=== PATIENT | male | born 1955 | race Caucasian/White ===

== ENCOUNTER 2024-07-13 12:21 | Emergency (ER) | payer OTHER, MEDICARE, SELFPAY ==
[2024-07-13] VITALS (10 sets, daily range): BP systolic 124–168; BP diastolic 70–100; PULSE 90–124; RESP 16–33; TEMP 38.6; O2SAT 91–96; BMI 28.1
--- NOTE | 2024-07-13 12:40 | XR_ITS ---
WS: [id number] Exam: XR chest 1V portable [id number] Date/Time of Exam: 07/13/2024 12:55 PM Reason For Exam: Possible Sepsis No priors. The lungs are clear and fully inflated. Normal cardiomediastinal silhouette and regional bony elements. Scattered calcified granulomas. XR/XR chest 1V portable [id number] IMPRESSION: 1. Negative chest.
--- NOTE | 2024-07-13 12:45 | ECG_ITS ---
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 Measurements Intervals [place] Rate: 121 P: 0 WV: 0 QRS: 1 QRSD: 81 T: 154 QT: 270 QTc: 383 Interpretive Statements ATRIAL FIBRILLATION WITH RAPID VENTRICULAR RESPONSE MINIMAL VOLTAGE CRITERIA FOR LVH, CONSIDER NORMAL VARIANT [MEETS CRITERIA IN ONE OF: R(aVL), S(V1), R(V5), R(V5/V6)+S(V1)] ST DEVIATION AND MODERATE T-WAVE ABNORMALITY, CONSIDER ANTEROLATERAL ISCHEMIA [-0.1+ mV T-WAVE IN V3-V6] No previous ECG available for comparison Electronically Signed On 07-15-2024 13:28:31 CDT by Leiws Queen M.D. [email or web address]
--- NOTE | 2024-07-13 12:54 | ED_ITS ---
HPI - Weakness 2 General: Chief complaint: Weakness Stated complaint: multiple falls Time Seen by Provider: 07/13/24 12:33 Source: patient and family Mode of arrival: ambulatory Limitations: altered mental status History of Present Illness: pt is AAOx3 but appears to not be at baseline per family. little confused. multiple falls, near syncope and syncope as well as loss of balance by description. over the past 1 wk. pt wanted to see the doc today and called himself and went to clinic and was sent here from clinic for further eval. 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 L side is dominant for him. Of note all of patient's care has previously been at [facility]. Review of Systems 2 General: Reports: 10 or more systems reviewed and unremarkable except in HPI and below Physical Exam 2 Const: COMMON NORMALS: average body habitus, patient oriented x3, alert and well nourished GENERAL APPEARANCE: well kempt and well developed HENMT: COMMON NORMALS: normocephalic, atraumatic, external ears normal and moist oral mucous membranes HEAD & SCALP: normocephalic and atraumatic E XTERNAL EAR: Yes external ears normal Eye: COMMON NORMALS: Equal, round and reactive pupils present, EOMs intact bilaterally and conjunctivae normal CONJUNCTIVA: Yes conjunctivae normal P UPIL: Yes Equal, round and reactive pupils present Neck/C-Spine: COMMON NORMALS: full ROM, no lymphadenopathy and supple Chest: CHEST: Yes Symmetrical chest wall rise and No Surgical scars present (Chest) Resp: COMMON NORMALS: normal respiratory effort, No retractions, No use of accessory muscles and clear to auscultation bilaterally AUSCULTATION: clear to auscultation bilaterally Cardio: COMMON NORMALS: S1 normal heart sound present, S2 normal heart sound present, No gallops present (Cardio), No clicks present (Cardio), No murmurs present (Cardio) and No rub (Cardio) HEART SOUNDS: S1 normal heart sound present, S2 normal heart sound present and no murmurs PERIPHERAL PULSES: o ther (Radial pulses 2+ and symmetric) GI: COMMON NORMALS: Soft to palpation, non-tender and no masses INSPECTION: No abdominal distension PALPATION: Yes Soft to palpation, No Guarding due to palpation present (GI) and No Rebound tenderness present : COMMON NORMALS: Yes no CVA tenderness BLADDER/KIDNEY EXAM: Yes no CVA tenderness PENIS: normal penis MEATUS: meatus normal SCROTUM: Yes testes descended bilaterally TESTES: Yes testicular lie normal Back/Pelvis: COMMON NORMALS: no CVA tenderness Extremity: COMMON NORMALS: normal to inspection, full ROM, capillary refill normal and no clubbing, cyanosis or edema Neuro: COMMON NORMALS: patient oriented x3 SENSORIUM/ORIENTATION: Yes alert Psych: APPEARANCE: Yes well kempt Skin: COMMON NORMALS: no wounds, turgor normal and no jaundice SKIN IMAGES (MALE): 1. 12 x 6 cm indurated erythematous area with multiple tunneling areas of rot GENERAL SKIN EXAM: turgor normal Course 2 Reevaluation(s): Reevaluation #1: Patient reassessed, heart rate somewhat improving. Temp still elevated. Patient will require transfer as we have no urology here and patient has Gilbert's gangrene. Transfer process has been initiated. Time: 15:02 Vital Signs: Vital signs: Vital Signs Temperature 101.4 F H 07/13/24 12:24 Pulse Rate 120 H 07/13/24 12:24 Respiratory Rate 20 H 07/13/24 12:24 Blood Pressure 146/100 07/13/24 12:24 Pulse Oximetry 94 07/13/24 12:24 Oxygen Delivery Me thod Room Air 07/13/24 12:24 MDM - Weakness Medical Decision Making Patient with fever and sepsis, concern for bacteremia initially had unknown source of infection, more thorough physical exam revealed a severe wound to the buttocks with gangrene and tunneling. No obvious discharge. Very foul smell in room. Patient is also unable to urinate, Saucedo placed. Vitals have thankfully improved with fluids. Currently heart rate of 90 as are reviewing the monitor. Was 120s A-fib RVR when he came in. Have only treated the heart rate with resuscitation for the illness with fluids and antibiotics. No antiarrhythmics or rate control medications. Patient's blood pressure has remained in good standing and patient was found to have Gilbert's gangrene on CT. [facility] Medical Records I reviewed the patient's medical records. Lab Data I reviewed the patient's lab results. 07/13/24 13:00 07/13/24 13:00 Radiology Impressions Chest X-Ray 07/13/24 12:40 IMPRESSION: 1. Negative chest. Laboratory Results WBC 11.74 10^3/uL (3.29-11.43) H 07/13/24 13:00 RBC 4.08 10^6/uL (3.85-5.65) 07/13/24 13:00 Hgb 13.70 g/dL (11.27-16.99) 07/13/24 13:00 Hct 38.5 % (37-53) 07/13/24 13:00 MCV 94.4 fl (82-101) 07/13/24 13:00 MCH 33.6 pg (27-33) H 07/13/24 13:00 MCHC 35.6 g/dL (30-55) 07/13/24 13:00 RDW 13.9 % (12.1-15.1) 07/13/24 13:00 Plt Count 159 10^3/cmm (157-399) 07/13/24 13:00 MPV 9.9 fL (7.4-10.4) 07/13/24 13:00 Neut % (Auto) 91.4 % 07/13/24 13:00 Lymph % (Auto) 3.5 % 07/13/24 13:00 [place] % (Auto) 2.3 % 07/13/24 13:00 Eos % (Auto) 0.2 % 07/13/24 13:00 Baso % (Auto) 0.4 % 07/13/24 13:00 Neut # (Auto) 10.73 10^3/uL (1.8-7.7) H 07/13/24 13:00 Lymph # (Auto) 0.4 10^3/uL (0.8-4.8) L 07/13/24 13:00 [place] # (Auto) 0.3 10^3/uL (0.2-0.9) 07/13/24 13:00 Eos # (Auto) 0.0 10^3/uL (0.0-0.8) 07/13/24 13:00 Baso # (Auto) 0.1 10^3/uL (0.0-0.1) 07/13/24 13:00 Nucleated RBC % (auto) 0 % 07/13/24 13:00 Nucleated RBCs # 0.0 /100WBC 07/13/24 13:00 PT 14.20 SECONDS (12.1-14.9) 07/13/24 13:00 INR 1.03 (0.8-1.2) 07/13/24 13:00 APTT 27.1 SECONDS (23.9-36.7) 07/13/24 13:00 Sodium 131 mmol/L (136-145) L 07/13/24 13:00 Potassium 3.3 mmol/L (3.5-5.1) L 07/13/24 13:00 Chloride 96 mmol/L (98-107) L 07/13/24 13:00 Carbon Dioxide 21 mmol/L (22-29) L 07/13/24 13:00 Anion Gap 17.3 (5-19) 07/13/24 13:00 BUN 21 mg/dL (8-23) 07/13/24 13:00 Creatinine 0.9 mg/dL (0.7-1.2) 07/13/24 13:00 GFR Calculation 84.2 mL/min (90-130) L 07/13/24 13:00 Glucose 181 mg/dL (65-115) H 07/13/24 13:00 POC Glucose 205 mg/dL (70-110) H 07/13/24 13:38 Calculated Osmolality 280 mOsm/kg (285-295) L 07/13/24 13:00 Lactic Acid 1.9 mmol/L (0.5-2.2) 07/13/24 13:00 Calcium 8.9 mg/dL (8.5-10.5) 07/13/24 13:00 Magnesium 2.0 mg/dL (1.7-2.3) 07/13/24 13:00 Total Bilirubin 1.6 mg/dL (0.15-1.2) H 07/13/24 13:00 AST 12 U/L (0-40) 07/13/24 13:00 ALT 13 U/L (0-41) 07/13/24 13:00 Alkaline Phosphatase 108 U/L (40-130) 07/13/24 13:00 Total Protein 7.1 g/dL (6.6-8.7) 07/13/24 13:00 Albumin 3.2 g/dL (3.5-5.2) L 07/13/24 13:00 Globulin 3.9 g/dL (1.3-4.6) 07/13/24 13:00 Procalcitonin 1.50 ng/mL (0-0.5) H 07/13/24 13:00 Urine Color Yellow (Yellow) 07/13/24 13:07 Urine Appearance Clear (CLEAR) 07/13/24 13:07 Urine pH 6 (5-7) 07/13/24 13:07 Ur Specific Reading 1.010 (1.005-1.030) 07/13/24 13:07 Urine Protein 1+ (Negative) H 07/13/24 13:07 Urine Glucose (UA) Norm (Normal) 07/13/24 13:07 Urine Ketones Negative (Negative) 07/13/24 13:07 Urine Blood 2+ (Negative) H 07/13/24 13:07 Urine Nitrate Negative (Negative) 07/13/24 13:07 Urine Bilirubin 1+ (Negative) H 07/13/24 13:07 Urine Urobilinogen 4+ mg/dL (Negative) H 07/13/24 13:07 Ur Leukocyte Esterase Trace (Negative) H 07/13/24 13:07 Urine RBC 3-5 /hpf (0-2) 07/13/24 13:07 Urine WBC 0-5 /hpf (0-5) 07/13/24 13:07 Ur Squamous Epith Cells 0-5 /hpf (0-5) 07/13/24 13:07 Amorphous Sediment Not Reportable 07/13/24 13:07 Urine Bacteria None seen /hpf (NONE) 07/13/24 13:07 Hyaline Casts 1.65 /lpf 07/13/24 13:07 All radiology interpretation(s) finalized by discharge ED provider radiology interpretation(s): Chest x-ray unremarkable, significant subcu emphysema in the pelvis EKG Data EKG 1: I personally reviewed and interpreted this EKG as follows: EKG interpretation date: 07/13/24 EKG interpretation time: 12:49 Prior EKG tracings: not available for review Interpretation: normal axis. a fib rvr, no ST elevations or depressions. Critical Care Time 2 Critical Care Time: Critical Care Time: Yes Total Critical Care Time: 39 Attestation: This case had a high probability of a clinically significant, sudden, or life threatening deterioration of this patient's condition which required my full and direct attention, intervention and personal management. 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
--- NOTE | 2024-07-13 13:10 | CT_ITS ---
WS: [id number] CT ABDOMEN PELVIS TECHNIQUE: Contrast-enhanced CT of the abdomen and pelvis with coronal and sagittal reformatted images. CLINICAL INFORMATION: Fever, sepsis, L buttocks with large wound with tunneling COMPARISON: None. DLP: 1658.[address] scans at [facility] use at least one of these dose optimization techniques: automated exposure control; mA and/or kV adjustment per patient size (includes targeted exams where dose is matched to clinical indication); or iterative reconstruction. FINDINGS: Diffuse patchy areas of subcutaneous air within the perineum extending into the scrotal soft tissues. This extends into the LEFT greater than RIGHT perineum and into the LEFT gluteal soft tissues. No evidence of drainable abscess or fluid collection. Findings suspicious for Gilbert's gangrene. Fatty liver. Hepatomegaly. Small esophageal renal hernia. Adrenal glands are normal. No hydronephrosis in either kidney. Small renal cyst. Lung bases are well aerated. Small splenules. Normal caliber abdominal aorta. Dense aortic calcification. Normal sigmoid colon. Saucedo catheter. CT/CT abdomen pelvis w con* [id number] IMPRESSION: 1. Findings suspicious for Gilbert's gangrene described above with diffuse younger bcutaneous gas in the perineum extending to the scrotal soft tissues and LEFT b uttocks 2. No drainable abscess or fluid collection Notified Jose Covington MD at 07/13/2024 2:27 PM.
[2024-07-13 13:11] LABS: Basophils # 0.1 10^3/uL (0.0-0.1); Basophils % 0.4 %; Eosinophils % 0.2 %; Hematocrit 38.5 % (37-53); Lymphocytes # 0.4 10^3/uL (0.8-4.8); Lymphocytes % 3.5 %; Mean Corpuscular HGB Conc 35.6 g/dL (30-55); Mean Corpuscular Hemoglobin 33.6 pg (27-33); Mean Corpuscular Volume 94.4 fl (82-101); Mean Platelet Volume 9.9 fL (7.4-10.4); Monocytes # 0.3 10^3/uL (0.2-0.9); Monocytes % 2.3 %; Neutrophils # 10.73 10^3/uL (1.8-7.7); Neutrophils % 91.4 %; Nucleated Red Blood Cells % 0 %; Platelet Count 159 10^3/cmm (157-399); Red Blood Count 4.08 10^6/uL (3.85-5.65); Red Cell Distribution Width 13.9 % (12.1-15.1); White Blood Count 11.74 10^3/uL (3.29-11.43)
[2024-07-13 13:20] LABS: INR 1.03 (0.8-1.2)
[2024-07-13 13:20] LABS: Bacteria Urine None Seen /hpf; Hyaline Casts Urine 1.65 /lpf; Squamous Epithelial Cell Urine 0-5 /hpf (0-5); WBC Urine 0-5 /hpf (0-5)
[2024-07-13 13:21] LABS: Partial Thromboplastin Time 27.1 SECONDS (23.9-36.7)
[2024-07-13 13:28] LABS: Lactic Sepsis W/Reflex 1.9 mmol/L (0.5-2.2)
[2024-07-13 13:29] LABS: Alanine Aminotransferase 13 U/L (0-41); Albumin Level 3.2 g/dL (3.5-5.2); Alkaline Phosphatase 108 U/L (40-130); Anion Gap 17.3 (5-19); Aspartate Amino Transferase 12 U/L (0-40); Blood Urea Nitrogen 21 mg/dL (8-23); Calcium 8.9 mg/dL (8.5-10.5); Carbon Dioxide 21 mmol/L (22-29); Chloride 96 mmol/L (98-107); Creatinine Clr Calc Pharmacy 81.4703; Globulin 3.9 g/dL (1.3-4.6); Glomerular Filtration Rate 84.2 mL/min (90-130); Glucose 181 mg/dL (65-115); Osmolality Calculated 280 mOsm/kg (285-295); Potassium 3.3 mmol/L (3.5-5.1); Sodium 131 mmol/L (136-145); Total Bilirubin 1.6 mg/dL (0.15-1.2); Total Protein 7.1 g/dL (6.6-8.7)
[2024-07-13 13:29] LABS: Add Urine Microscopic? YES; Blood Urine 2+ (Negative); Glucose Urine UA Norm (Normal); Ketones Urine Negative (Negative); Nitrate Urine Negative (Negative); Protein Urine 1+ (Negative); Urine Appearance Clear (CLEAR); Urine Color Yellow (Yellow); pH Urine 6 (5-7)
[2024-07-13 13:30] LABS: Add Urine Culture? No; Bilirubin Urine 1+ (Negative); Leukocyte Esterase Urine Trace (Negative); Urobilinogen Urine 4+ mg/dL (Negative)
[2024-07-13 13:36] LABS: Slide Review Slide Review Perform
[2024-07-13 13:41] LABS: Glucose Point of Care 205 mg/dL (70-110)
[2024-07-13] MEDS: iohexol 350 mg/mL 500 mL Btl (per mL) IV (13:56)
[2024-07-13] MEDS: sodium chloride 0.9% 2,449.41 ML 2449.41 ML IV (14:20)
[2024-07-13] MEDS: acetaminophen 500 mg Tablet 1000 MG PO (14:20)
[2024-07-13] MEDS: piperacillin-tazobactam 4.5 GM in sodium chloride 0.9% (plus) 50 ML IV (14:20)
--- NOTE | 2024-07-13 14:28 | PC.NURSE ---
Patient and family refuse to let me do the COVID, flu & RSV swab. Patient and family state that they swab your brain through your nose and they will not allow it.
[2024-07-13] MEDS: vancomycin 2,000 MG/400 ML PIGGYBACK 200 MG IV (15:07)
--- NOTE | 2024-07-13 16:50 | PC.NURSE ---
Called the patient's daughter twice and got no answer either time. Needed to inform the daughter that we were unable to fly the patient due to [employer] declining the flight due to low ceilings and now the patient will be transported via [facility]. Also I needed to get verbal consent over the phone from the daughter to transfer since the patient is altered and confused and cannot sign for himself.
== END 2024-07-13 17:32 | disposition admitted as inpatient to this hospital (09) ==
PROVIDERS: Emergency Provider Emergency Medicine
DX: N49.3 Fournier gangrene (principal); S31.829A Unspecified open wound of left buttock, initial encounter; E86.0 Dehydration; X58.XXXA Exposure to other specified factors, initial encounter; A41.9 Sepsis, unspecified organism; R65.20 Severe sepsis without septic shock
CPT/HCPCS: 36415; 36416; 71045; 74177; 80053; 81001; 82962; 83605; 83735; 84145; 85025; 85610; 85730; 86850; 86900; 87040; 87150; 87205; 93005; 96365; 99285; J2543; J3372; J7030; J9999

== ENCOUNTER 2024-09-04 16:11 | Emergency (ER) | payer OTHER, SELFPAY ==
[2024-09-04 16:26] VITALS: BP 111/65; PULSE 87; RESP 16; TEMP 36.4; O2SAT 99; BMI 25.7
--- NOTE | 2024-09-04 17:26 | ED_ITS ---
HPI - Abdominal Pain 2 General: Chief Complaint: Abdominal Pain Stated Complaint: abd pain, needs ostomy bag change Time Seen by Provider: 09/04/24 17:24 Source: patient Mode of arrival: ambulatory Limitations: no limitations History of Present Illness: 69-year-old male has had a history of an ostomy he states that he has been needed and change his ostomy has been having leaking states that his change has not been delivered yet and has not delivered for a week. He states he is mainly here just to get the ostomy changed out. He states had some sharp pains but they have been chronic denies any new severe pain denies any fevers. Associated Symptoms: Denies chills, diarrhea, fever(s), nausea and vomiting Related Data Home Medications ?Medication ?Instructions ?Recorded ?Confirmed ibuprofen 800 mg tablet 800 mg PO TID Pain 07/13/24 07/13/24 Previous Rx's ?Medication ?Instructions ?Recorded hydrocodone 5 mg-acetaminophen 325 1 tab PO Q6H PRN pa in #14 tabs 09/04/24 mg tablet Allergies Allergy/AdvReac Type Severity Reaction Status Date / Time No Known Allergies Allergy Verified 07/13/24 12:39 Review of Systems 2 Const: Denies: fever(s), chills, body aches or change in appetite ENMT: Denies: throat pain or dental pain Card: Denies: chest pain Resp: Denies: dyspnea GI: Reports: abdominal pain; Denies: nausea, vomiting or diarrhea Musc: Denies: neck pain or back pain Skin/Breast: Denies: rash Neuro: Denies: headache(s) Physical Exam 2 Const: COMMON NORMALS: no acute distress, patient oriented x3 and healthy appearing HENMT: COMMON NORMALS: normocephalic and atraumatic HEAD & SCALP: n ormocephalic and atraumatic Eye: COMMON NORMALS: conjunctivae normal CONJUNCTIVA: Yes conjunctivae normal Neck/C-Spine: COMMON NORMALS: full ROM and supple Chest: COMMONS NORMALS: normal inspection of the chest Resp: COMMON NORMALS: normal respiratory effort Cardio: COMMON NORMALS: regular rate, regular rhythm and No murmurs present (Cardio) RATE: regular rate RHYTHM: regular rhythm GI: COMMON NORMALS: Normal to inspection, nondistended, normoactive bowel sounds present, Soft to palpation, non-tender and no masses PALPATION: Yes Soft to palpation OTHER: Ostomy is in place with some slight leakage around it no erythema no tenderness Extremity: COMMON NORMALS: normal to inspection and full ROM Neuro: COMMON NORMALS: patient oriented x3, moves all extremities and no focal motor deficits Psych: COMMON NORMALS: mental status grossly normal, Normal thought process present and cooperative THOUGHT PROCESS: Normal thought process present Skin: COMMON NORMALS: no rashes or lesions noted and no wounds GENERAL SKIN EXAM: no rashes or lesions noted Course 2 Vital Signs: Vital signs: Vital Signs Temperature 97.6 F 09/04/24 16:26 Pulse Rate 76 09/04/24 19:10 Respiratory Rate 16 09/04/24 19:10 Blood Pressure 124/81 09/04/24 19:10 Pulse Oximetry 96 09/04/24 19:10 Oxygen Delivery Me thod Room Air 09/04/24 19:10 MDM - Abdominal Pain Medical Decision Making Patient presents here needing his ostomy bag changed having some slight abdominal pain to his blood work here is normal no signs of infection did change ostomy bag he is to follow-up with his surgeon return if worsening he understands agrees to plan. Medical Records I reviewed the patient's medical records. Lab Data I reviewed the patient's lab results. 09/04/24 17:14 09/04/24 17:14 Labs/Radiology: Laboratory Results WBC 9.18 10^3/uL (3.29-11.43) 09/04/24 17:14 RBC 4.13 10^6/uL (3.85-5.65) 09/04/24 17:14 Hgb 12.70 g/dL (11.27-16.99) 09/04/24 17:14 Hct 39.3 % (37-53) 09/04/24 17:14 MCV 95.2 fl (82-101) 09/04/24 17:14 MCH 30.8 pg (27-33) 09/04/24 17:14 MCHC 32.3 g/dL (30-55) 09/04/24 17:14 RDW 13.9 % (12.1-15.1) 09/04/24 17:14 Plt Count 307 10^3/cmm (157-399) 09/04/24 17:14 MPV 9.5 fL (7.4-10.4) 09/04/24 17:14 Neut % (Auto) 57.7 % 09/04/24 17:14 Lymph % (Auto) 26.8 % 09/04/24 17:14 [place] % (Auto) 12.0 % 09/04/24 17:14 Eos % (Auto) 2.0 % 09/04/24 17:14 Baso % (Auto) 1.0 % 09/04/24 17:14 Neut # (Auto) 5.30 10^3/uL (1.8-7.7) 09/04/24 17:14 Lymph # (Auto) 2.5 10^3/uL (0.8-4.8) 09/04/24 17:14 [place] # (Auto) 1.1 10^3/uL (0.2-0.9) H 09/04/24 17:14 Eos # (Auto) 0.2 10^3/uL (0.0-0.8) 09/04/24 17:14 Baso # (Auto) 0.1 10^3/uL (0.0-0.1) 09/04/24 17:14 Nucleated RBC % (auto) 0 % 09/04/24 17:14 Nucleated RBCs # 0.0 /100WBC 09/04/24 17:14 Sodium 138 mmol/L (136-145) 09/04/24 17:14 Potassium 4.2 mmol/L (3.5-5.1) 09/04/24 17:14 Chloride 106 mmol/L (98-107) 09/04/24 17:14 Carbon Dioxide 18 mmol/L (22-29) L 09/04/24 17:14 Anion Gap 18.2 (5-19) 09/04/24 17:14 BUN 18 mg/dL (8-23) 09/04/24 17:14 Creatinine 0.7 mg/dL (0.7-1.2) 09/04/24 17:14 GFR Calculation 112.5 mL/min (90-130) 09/04/24 17:14 Glucose 91 mg/dL (65-115) 09/04/24 17:14 Calculated Osmolality 287 mOsm/kg (285-295) 09/04/24 17:14 Calcium 9.4 mg/dL (8.5-10.5) 09/04/24 17:14 Total Bilirubin 0.3 mg/dL (0.15-1.2) 09/04/24 17:14 AST 18 U/L (0-40) 09/04/24 17:14 ALT 47 U/L (0-41) H 09/04/24 17:14 Alkaline Phosphatase 100 U/L (40-130) 09/04/24 17:14 Total Protein 7.5 g/dL (6.6-8.7) 09/04/24 17:14 Albumin 3.7 g/dL (3.5-5.2) 09/04/24 17:14 Globulin 3.8 g/dL (1.3-4.6) 09/04/24 17:14 Lipase 83 U/L (13-60) H 09/04/24 17:14 No radiology studies performed this visit Discharge Plan Discharge Patient Disposition: Home Clinical Impression: Abdominal pain Condition: Stable Prescriptions: New hydrocodone-acetaminophen 5-325 mg tablet 1 tab PO Q6H PRN (Reason: pain) Qty: 14 0RF No Action ibuprofen 800 mg tablet 800 mg PO TID Discharge Orders: Discharge ED (Routine); Ordered 09/04/24 Ordered By: Haydee Means Referrals: Anna Arrieta APRN [Primary Care Provider, Family Practice] - 4-7 days Discharge Diet: Advance as tolerated Discharge Activity: Resume usual activity Patient Instructions: Abdominal Pain (ED) Print Language: Slovak Coding Level of Care Code ED 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
[2024-09-04 17:40] VITALS: BP 108/60; PULSE 79; O2SAT 94
[2024-09-04 17:44] LABS: Basophils # 0.1 10^3/uL (0.0-0.1); Eosinophils # 0.2 10^3/uL (0.0-0.8); Hematocrit 39.3 % (37-53); Lymphocytes # 2.5 10^3/uL (0.8-4.8); Lymphocytes % 26.8 %; Mean Corpuscular HGB Conc 32.3 g/dL (30-55); Mean Corpuscular Hemoglobin 30.8 pg (27-33); Mean Corpuscular Volume 95.2 fl (82-101); Mean Platelet Volume 9.5 fL (7.4-10.4); Monocytes # 1.1 10^3/uL (0.2-0.9); Neutrophils % 57.7 %; Nucleated Red Blood Cells % 0 %; Platelet Count 307 10^3/cmm (157-399); Red Blood Count 4.13 10^6/uL (3.85-5.65); Red Cell Distribution Width 13.9 % (12.1-15.1); White Blood Count 9.18 10^3/uL (3.29-11.43)
[2024-09-04 18:15] LABS: Alanine Aminotransferase 47 U/L (0-41); Albumin Level 3.7 g/dL (3.5-5.2); Alkaline Phosphatase 100 U/L (40-130); Anion Gap 18.2 (5-19); Aspartate Amino Transferase 18 U/L (0-40); Blood Urea Nitrogen 18 mg/dL (8-23); Calcium 9.4 mg/dL (8.5-10.5); Carbon Dioxide 18 mmol/L (22-29); Chloride 106 mmol/L (98-107); Creatinine Clr Calc Pharmacy 87.9746; Globulin 3.8 g/dL (1.3-4.6); Glomerular Filtration Rate 112.5 mL/min (90-130); Glucose 91 mg/dL (65-115); Lipase 83 U/L (13-60); Osmolality Calculated 287 mOsm/kg (285-295); Potassium 4.2 mmol/L (3.5-5.1); Sodium 138 mmol/L (136-145); Total Bilirubin 0.3 mg/dL (0.15-1.2); Total Protein 7.5 g/dL (6.6-8.7)
[2024-09-04 18:30] VITALS: BP 103/64; PULSE 79; O2SAT 97
[2024-09-04 19:10] VITALS: BP 124/81; PULSE 76; RESP 16; O2SAT 96
[2024-09-04 20:12] VITALS: BP 120/82; PULSE 67; RESP 16; O2SAT 97
== END 2024-09-04 20:14 | disposition home or self-care (01) ==
PROVIDERS: Emergency Provider Emergency Medicine; PCP Nurse Practitioner Family
DX: R10.9 Unspecified abdominal pain (principal)
CPT/HCPCS: 36415; 80053; 83690; 85025; 99283

== ENCOUNTER → 2024-09-14 13:15 | Outpatient (BNVA) | payer OTHER, SELFPAY | PROVIDERS: PCP Nurse Practitioner Family; Visit Provider Thoracic Surgery (Cardiothoracic Vascular Surgery) | DX: I96 Gangrene, not elsewhere classified (principal); T81.31XD Disruption of external operation (surgical) wound, not elsewhere classified, subsequent encounter; Y83.8 Other surgical procedures as the cause of abnormal reaction of the patient, or of later complication, without mention of misadventure at the time of the procedure | CPT/HCPCS: 97597; 97598; A6197 ==

== ENCOUNTER → 2024-09-21 12:48 | Outpatient (BNVA) | payer OTHER, SELFPAY | PROVIDERS: PCP Nurse Practitioner Family; Visit Provider Thoracic Surgery (Cardiothoracic Vascular Surgery) | DX: I96 Gangrene, not elsewhere classified (principal); T81.31XD Disruption of external operation (surgical) wound, not elsewhere classified, subsequent encounter; Y83.8 Other surgical procedures as the cause of abnormal reaction of the patient, or of later complication, without mention of misadventure at the time of the procedure | CPT/HCPCS: 97597; 97598 ==

== ENCOUNTER → 2024-09-28 13:23 | Outpatient (BNVA) | payer OTHER, SELFPAY | PROVIDERS: PCP Nurse Practitioner Family; Visit Provider Thoracic Surgery (Cardiothoracic Vascular Surgery) | DX: N49.3 Fournier gangrene (principal); T81.31XD Disruption of external operation (surgical) wound, not elsewhere classified, subsequent encounter; Y83.8 Other surgical procedures as the cause of abnormal reaction of the patient, or of later complication, without mention of misadventure at the time of the procedure | CPT/HCPCS: 97597; 97598 ==

== ENCOUNTER → 2024-10-05 12:51 | Outpatient (BNVA) | payer OTHER, SELFPAY | PROVIDERS: PCP Nurse Practitioner Family; Visit Provider Thoracic Surgery (Cardiothoracic Vascular Surgery) | DX: I96 Gangrene, not elsewhere classified (principal); T81.31XD Disruption of external operation (surgical) wound, not elsewhere classified, subsequent encounter; Y83.8 Other surgical procedures as the cause of abnormal reaction of the patient, or of later complication, without mention of misadventure at the time of the procedure | CPT/HCPCS: 97597 ==

== ENCOUNTER → 2024-10-13 10:35 | Outpatient (BNVA) | payer OTHER, SELFPAY | PROVIDERS: PCP Nurse Practitioner Family; Visit Provider Thoracic Surgery (Cardiothoracic Vascular Surgery) | DX: I96 Gangrene, not elsewhere classified (principal); T81.31XD Disruption of external operation (surgical) wound, not elsewhere classified, subsequent encounter; Y83.8 Other surgical procedures as the cause of abnormal reaction of the patient, or of later complication, without mention of misadventure at the time of the procedure | CPT/HCPCS: 97597 ==

== ENCOUNTER → 2024-10-19 12:47 | Outpatient (BNVA) | payer OTHER, SELFPAY | PROVIDERS: PCP Nurse Practitioner Family; Visit Provider Thoracic Surgery (Cardiothoracic Vascular Surgery) | DX: I96 Gangrene, not elsewhere classified (principal); T81.31XD Disruption of external operation (surgical) wound, not elsewhere classified, subsequent encounter; Y83.8 Other surgical procedures as the cause of abnormal reaction of the patient, or of later complication, without mention of misadventure at the time of the procedure | CPT/HCPCS: 97597; A6210 ==

== ENCOUNTER → 2024-10-26 13:08 | Outpatient (BNVA) | payer OTHER, SELFPAY | PROVIDERS: PCP Nurse Practitioner Family; Visit Provider Thoracic Surgery (Cardiothoracic Vascular Surgery) | DX: I96 Gangrene, not elsewhere classified (principal); T81.31XD Disruption of external operation (surgical) wound, not elsewhere classified, subsequent encounter; Y83.8 Other surgical procedures as the cause of abnormal reaction of the patient, or of later complication, without mention of misadventure at the time of the procedure | CPT/HCPCS: 97597 ==

== ENCOUNTER → 2024-11-02 11:05 | Outpatient (BNVA) | payer OTHER, SELFPAY | PROVIDERS: PCP Nurse Practitioner Family; Visit Provider Thoracic Surgery (Cardiothoracic Vascular Surgery) | DX: I96 Gangrene, not elsewhere classified (principal); T81.31XD Disruption of external operation (surgical) wound, not elsewhere classified, subsequent encounter; Y83.8 Other surgical procedures as the cause of abnormal reaction of the patient, or of later complication, without mention of misadventure at the time of the procedure | CPT/HCPCS: 97597 ==

== ENCOUNTER → 2024-11-09 10:06 | Outpatient (BNVA) | payer OTHER, SELFPAY | PROVIDERS: PCP Nurse Practitioner Family; Visit Provider Thoracic Surgery (Cardiothoracic Vascular Surgery) | DX: I96 Gangrene, not elsewhere classified (principal); T81.31XD Disruption of external operation (surgical) wound, not elsewhere classified, subsequent encounter; Y83.8 Other surgical procedures as the cause of abnormal reaction of the patient, or of later complication, without mention of misadventure at the time of the procedure | CPT/HCPCS: 97597 ==

== ENCOUNTER → 2024-11-16 11:02 | Outpatient (BNVA) | payer OTHER, SELFPAY | PROVIDERS: PCP Nurse Practitioner Family; Visit Provider Thoracic Surgery (Cardiothoracic Vascular Surgery) | DX: Z09 Encounter for follow-up examination after completed treatment for conditions other than malignant neoplasm (principal); Z87.2 Personal history of diseases of the skin and subcutaneous tissue | CPT/HCPCS: 99212 ==

== ENCOUNTER → 2025-01-17 08:03 | Outpatient (BNVA) | payer OTHER, SELFPAY | PROVIDERS: PCP Nurse Practitioner Family; Visit Provider Thoracic Surgery (Cardiothoracic Vascular Surgery) | DX: L24.A2 Irritant contact dermatitis due to fecal, urinary or dual incontinence (principal) | CPT/HCPCS: A6250 ==